=== PATIENT | male | born 1985 | race Caucasian/White ===

== ENCOUNTER 2018-06-20 02:37 | Emergency (ER) | payer OTHER ==
[~2018-06-20] VITALS: Ht 180.3 cm; Wt 108.9 kg
[2018-06-20 05:16] VITALS: BP 143/84
[2018-06-20] MEDS ORDERED: BENADRYL ALLERG25 M2 PO (05:34)
[2018-06-20] MEDS ORDERED: PERMETHRIN60 GM TOP (05:34)
--- NOTE | 2018-06-20 05:35 | ED SKIN/ALLERGY COMPLAINT ---
History of Present Illness General Chief Complaint: Allergy Symptoms Stated Complaint: "RASH ALL OVER" Source: patient, old records, friend Exam Limitations: no limitations Vital Signs & Intake/Output Vital Signs & Intake/Output Vital Signs Date Time Temp Pulse Resp B/P B/P Pulse O2 O2 Flow FiO2 Mean Ox Delivery Rate 06/20 0530 Room Air 06/20 0516 77 16 143/84 99 Room Air 06/20 0451 98.3 92 16 134/86 98 Room Air Allergies Coded Allergies: MDX - Doxycycline (DOXYCYCLINE) (Mild, UPSET STOM 12/12/13) MDX - Penicillin (PENICILLIN) (RASH 12/12/13) Reconcile Medications Diphenhydramine HCl (Benadryl Allergy) 25 MG TABLET 1-2 TAB PO Q6P PRN itchy rash Permethrin 5 % CREAM..G. 1 REBECCA TOP ONCE scabies massage into skin from head to feet, leave on for 8-14 hours then remove by washing. Repeat in 2 weeks Triage Note: PT TO TRIAGE WITH RASH TO BILAT ARMS AND LEGS. PER PT SAW PCP YESTERDAY, RX CORTISONE CREAM, HAS NOT HELPED PER PT. DENIES NEW SOAPS/DETERGENTS OR OUTSIDE CONTACTS. DENIES THROAT IRRITATION. Triage Nurses Notes Reviewed? yes Onset: Gradual Duration: day(s):, constant, continues in ED, getting worse Timing: recent history Severity: moderate Location: torso, extremities Possible Factors: no cause identified Modifying Factors: Improves With: scratching. Associated Symptoms: rash HPI: Several days prior to admission patient notes increasing itchy rash to extremities torso neck inguinal area and legs. He was prescribed hydrocortisone cream without effect he denies fever chills nausea vomiting diarrhea abdominal pain chest pain shortness breath headache dysuria bleeding new soap shampoo detergent clothes foods ill contacts. Past History Travel History Traveled to [place] past 21 day No Medical History Any Pertinent Medical History? 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 No Review of Systems Review of Systems Constitutional: Reports: no symptoms. EENTM: Reports: no symptoms. Respiratory: Reports: no symptoms. Cardiovascular: Reports: no symptoms. GI: Reports: no symptoms. Genitourinary: Reports: no symptoms. Musculoskeletal: Reports: no symptoms. Skin: Reports: see HPI, rash. Neurological/Psychological: Reports: no symptoms. Hematologic/Endocrine: Reports: no symptoms. Immunologic/Allergic: Reports: no symptoms. All Other Systems: Reviewed and Negative Physical Exam Physical Exam General Appearance: well developed/nourished, alert, awake, anxious, mild distress Head: atraumatic, normal appearance Eyes: Bilateral: PERRL, EOMI. Ears, Nose, Throat: normal pharynx, normal ENT inspection, hearing grossly normal Neck: normal inspection, supple Respiratory: normal breath sounds Cardiovascular: regular rate/rhythm Peripheral Pulses: 4+ carotid (R), 4+ carotid (L) Gastrointestinal: normal bowel sounds, soft, non-tender, no organomegaly Back: normal inspection, normal range of motion, no vertebral tenderness Extremities: normal inspection, normal capillary refill, normal range of motion, no edema Neurologic/Psych: awake, alert, oriented x 3, normal mood/affect Reflexes: 2+: bicep (R), bicep (L). Skin: intact, normal color, rash Skin Problem Location: generalized, neck, upper extremities, torso, lower extremities Skin Problem Character: rash Lymphatic: no anterior cervical sathish Progress Differential Diagnosis: abscess/cellulitis, allergic reaction, contact dermatitis, urticaria Plan of Care: Permethrin Departure Departure Time of Disposition: 531 Disposition: HOME OR SELF CARE Condition: Stable Clinical Impression Primary Impression: Scabies infestation Referrals: Patient Has No Primary Care Dr (PCP/Family) Departure Forms: Customer Survey General Discharge Information RELEASE- WORK Prescriptions: Current Visit Scripts Permethrin 1 REBECCA TOP ONCE #60 GM massage into skin from head to feet, leave on for 8-14 hours then remove by washing. Repeat in 2 weeks Diphenhydramine HCl (Benadryl Allergy) 1-2 TAB PO Q6P PRN itchy rash #30 TAB Ref 1
== END 2018-06-20 05:38 ==
LOC: ERH 02:37
DX: B86 Scabies (principal); R21 Rash and other nonspecific skin eruption; L29.9 Pruritus, unspecified; F41.9 Anxiety disorder, unspecified